=== PATIENT | male | born 1935 | race Asian ===

== ENCOUNTER 2016-10-29 | Outpatient (CLI) | payer MEDICARE, OTHER | END 2016-10-29 12:46 | disposition home or self-care (01) ==

== ENCOUNTER 2016-11-12 14:22 | Emergency (ER) | payer MEDICARE, OTHER ==
[2016-11-12] MEDS ORDERED: VANCOMYCIN INJ 1.5 GM in SODIUM CHLORIDE 0.9% 500 ML IV STA (15:32)
[2016-11-12] MEDS ORDERED: IOPAMIDOL-300 100 ML VIAL IVP ONE (18:07)
== END 2016-11-12 19:15 | disposition home or self-care (01) ==
DX: L02.01 Cutaneous abscess of face (principal); L03.211 Cellulitis of face; L73.9 Follicular disorder, unspecified; R03.0 Elevated blood-pressure reading, without diagnosis of hypertension; F03.90 Unspecified dementia, unspecified severity, without behavioral disturbance, psychotic disturbance, mood disturbance, and anxiety; I48.91 Unspecified atrial fibrillation; Z79.01 Long term (current) use of anticoagulants; I25.10 Atherosclerotic heart disease of native coronary artery without angina pectoris; Z95.0 Presence of cardiac pacemaker; Z87.891 Personal history of nicotine dependence
CPT/HCPCS: 36415; 70487; 80053; 81001; 83690; 85025; 87070; 87205; 96365; 96366; 99283; 99284; J3370; Q9967

== ENCOUNTER 2016-12-05 | Outpatient (CLI) | payer MEDICARE, OTHER | END 2016-12-05 15:01 | disposition home or self-care (01) ==

== ENCOUNTER 2016-12-20 | Outpatient (CLI) | payer MEDICARE, OTHER | END 2016-12-20 10:50 | DX: R46.4 Slowness and poor responsiveness (principal) | CPT/HCPCS: A0425; A0428 ==